=== PATIENT | male | born 1965 | race Caucasian/White ===

== ENCOUNTER 2017-08-26 18:04 | Inpatient (IN) | payer OTHER ==
[~2017-08-26] VITALS: Ht 177.8 cm; Wt 102.3 kg
[2017-08-26 18:04] VITALS: O2SAT 99
[2017-08-26] MEDS ORDERED: MORPHINE SULFATE 8 MG/ML INJ ONE (18:14)
[2017-08-26] MEDS ORDERED: ONDANSETRON HCL 4 MG/2 ML VIAL ONE (18:24)
[2017-08-26] MEDS ORDERED: DIPHTH/TETANUS/ACEL PERTUSSIS (BOOSTER) 0.5 ML VIAL/PFS IM ONE (18:24)
[2017-08-26] MEDS ORDERED: SODIUM CHLORIDE 0.9% FLUSH 10 ML FLUSH IV FLUSH PRN (18:30)
[2017-08-26] MEDS ORDERED: Post-op Orders (for Pharmacy) XX ONE (18:30)
[2017-08-26] MEDS ORDERED: ACETAMINOPHEN/HYDROcodone 325 MG/5 MG TAB PO PRN (18:30)
[2017-08-26] MEDS ORDERED: MORPHINE SULFATE 4 MG/ML INJ IV PUSH PRN (18:30)
[2017-08-26] MEDS ORDERED: NALOXONE HCL 0.4 MG/ML AMP IV PUSH PRN (18:30)
[2017-08-26 18:34] LABS: AUTOMATED NEUTROPHIL # 9.4 TH/MM3 (1.8-7.7); BASOPHIL # 0.1 TH/MM3 (0-0.2); BASOPHIL % 1.1 % (0.0-2.0); EOSINOPHIL # 0.3 TH/MM3 (0-0.4); EOSINOPHIL % 2.3 % (0.0-4.0); HEMATOCRIT 45.8 % (39.0-51.0); HEMO FLAGS DIFF FINAL; LYMPH % 19.4 % (9.0-44.0); LYMPHOCYTE # 2.6 TH/MM3 (1.0-4.8); MEAN CELL VOLUME 89.6 FL (80.0-100.0); MEAN CORPUSCULAR HEMOGLOBIN 30.7 PG (27.0-34.0); MEAN CORPUSCULAR HGB CONC 34.3 % (32.0-36.0); MONO % 7.7 % (0.0-8.0); NEUT % 69.5 % (16.0-70.0); PLATELET COUNT 302 TH/MM3 (150-450); RED BLOOD COUNT 5.11 MIL/MM3 (4.50-5.90); RED CELL DISTRIBUTION WIDTH 12.8 % (11.6-17.2); WHITE BLOOD COUNT 13.5 TH/MM3 (4.0-11.0)
[2017-08-26 18:36] LABS: I-STAT POTASSIUM 3.9 MMOL/L (3.5-4.9)
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
[2017-08-26 18:52] LABS: APTT (PATIENT) 29.6 SEC (24.3-30.1); INTERNATIONAL NORMALIZED RATIO 1.1 RATIO; PROTHROMBIN TIME - PATIENT 10.9 SEC (9.8-11.6)
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
[2017-08-26] MEDS: SODIUM CHLOR 0.9% 1000 ML INJ 1,000 ML IV SCH (19:10)
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
[2017-08-26] MEDS ORDERED: IOHEXOL 350 MG/ML 10 ML VIAL (for RAD DIAG) IVCONTRAST ONE (19:31)
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
[2017-08-26 20:00] VITALS: BP 99/54; PULSE 83; RESP 20; TEMP 97.2; O2SAT 94
[2017-08-26] MEDS: MORPHINE SULFATE 2 MG/ML INJ IV PUSH PRN ×2 (20:07→22:19)
[2017-08-26 20:10] VITALS: BP 151/94; PULSE 93; RESP 24; O2SAT 96
[2017-08-26] MEDS ORDERED: PHENYLEPHRINE HCL 10 MG/ML VIAL ONE (20:24)
[2017-08-26] MEDS: METHOCARBAMOL 500 MG TAB PO SCH (22:00)
[2017-08-26] MEDS: SODIUM CHLORIDE 0.9% FLUSH 10 ML FLUSH IV FLUSH SCH (22:19)
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
[2017-08-27] MEDS: MORPHINE SULFATE 2 MG/ML INJ IV PUSH PRN ×7 (01:25→22:29)
[2017-08-27] MEDS: SODIUM CHLOR 0.9% 1000 ML INJ 1,000 ML IV SCH (04:18)
[2017-08-27 04:24] VITALS: BP 141/77; PULSE 68; RESP 20; TEMP 95.7; O2SAT 94
[2017-08-27 04:24] LABS: AUTOMATED NEUTROPHIL # 8.3 TH/MM3 (1.8-7.7); BASOPHIL # 0.1 TH/MM3 (0-0.2); BASOPHIL % 0.8 % (0.0-2.0); EOSINOPHIL # 0.1 TH/MM3 (0-0.4); EOSINOPHIL % 0.6 % (0.0-4.0); HEMATOCRIT 42.2 % (39.0-51.0); HEMO FLAGS DIFF FINAL; LYMPH % 17.4 % (9.0-44.0); MEAN CELL VOLUME 89.6 FL (80.0-100.0); MEAN CORPUSCULAR HEMOGLOBIN 30.6 PG (27.0-34.0); MEAN CORPUSCULAR HGB CONC 34.2 % (32.0-36.0); MONO % 9.8 % (0.0-8.0); NEUT % 71.4 % (16.0-70.0); PLATELET COUNT 245 TH/MM3 (150-450); RED BLOOD COUNT 4.71 MIL/MM3 (4.50-5.90); RED CELL DISTRIBUTION WIDTH 12.9 % (11.6-17.2); WHITE BLOOD COUNT 11.6 TH/MM3 (4.0-11.0)
[2017-08-27 04:52] LABS: BICARBONATE 22.7 MEQ/L (21.0-32.0); POTASSIUM 4.4 MEQ/L (3.5-5.1)
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
[2017-08-27 08:00] VITALS: BP 145/89; PULSE 77; RESP 18; TEMP 97.2; O2SAT 93
[2017-08-27 08:11] VITALS: O2SAT 94
[2017-08-27] MEDS: DOCUSATE SODIUM 50 MG/SENNA 8.6 MG TAB PO SCH ×2 (08:35→20:48)
[2017-08-27] MEDS: MAGNESIUM HYDROXIDE SUSP 30 ML CUP PO SCH ×2 (08:35→20:47)
[2017-08-27] MEDS: METHOCARBAMOL 500 MG TAB PO SCH ×3 (08:35→20:48)
[2017-08-27] MEDS: SODIUM CHLORIDE 0.9% FLUSH 10 ML FLUSH IV FLUSH SCH ×2 (08:36→20:46)
[2017-08-27] MEDS: FAMOTIDINE 20 MG TAB PO SCH ×2 (08:36→20:47)
[2017-08-27] MEDS: LIDOCAINE HCL 5% PATCH T-DERMAL SCH (08:37)
[2017-08-27] MEDS: ONDANSETRON HCL 4 MG/2 ML VIAL IV PUSH PRN ×3 (08:42→22:29)
[2017-08-27] MEDS ORDERED: CALCIUM CARBONATE 1.25 GM (CA 500 MG) TAB PO PRN (10:00)
[2017-08-27] MEDS: CALCIUM CARBONATE 500 MG CHEWABLE TAB PO PRN ×2 (11:10→17:38)
[2017-08-27] MEDS: NICOTINE 14 MG/24 HR PATCH T-DERMAL SCH (11:11)
[2017-08-27 12:00] VITALS: BP 160/89; PULSE 76; RESP 18; TEMP 97.5; O2SAT 91
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
[2017-08-27] MEDS: ENOXAPARIN SODIUM 30 MG/0.3 ML SYRINGE SQ SCH (13:28)
[2017-08-27] MEDS: ACETAMINOPHEN/HYDROcodone 325 MG/10 MG TAB PO PRN ×2 (15:40→20:49)
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
[2017-08-27 16:00] VITALS: BP 143/76; PULSE 72; RESP 16; TEMP 97.2; O2SAT 93
[2017-08-27 20:00] VITALS: BP 158/95; PULSE 77; RESP 20; TEMP 97.2; O2SAT 93
[2017-08-27] MEDS: REMOVE OLD NICODERM (NICOTINE) PATCH T-DERMAL SCH (20:48)
[2017-08-28] VITALS (7 sets, daily range): BP systolic 140–164; BP diastolic 88–100; PULSE 64–82; RESP 17–20; TEMP 96–97.2; O2SAT 90–94
[2017-08-28] MEDS: ENOXAPARIN SODIUM 30 MG/0.3 ML SYRINGE SQ SCH ×3 (01:00→23:23)
[2017-08-28] MEDS: METHOCARBAMOL 500 MG TAB PO SCH ×3 (05:21→21:06)
[2017-08-28] MEDS: MORPHINE SULFATE 2 MG/ML INJ IV PUSH PRN ×2 (06:06→12:41)
--- NOTE | 2017-08-28 06:43 | RADRPT ---
EXAM DATE/TIME: 08/28/2017 06:17 [facility] COMPARISON: CHEST SINGLE AP, August 27, 2017, 6:15. INDICATIONS : Follow up respiratory status. MEDICAL HISTORY : None. SURGICAL HISTORY : None. ENCOUNTER: Subsequent ACUITY: 4 - 6 days PAIN SCORE: 6/10 LOCATION: Bilateral chest FINDINGS: Left thoracostomy tube remains in place. There is mild persistent contusion at the left lung base. Mi ld atelectasis the right base is slightly worsened on previous exam. Heart encounter is grossly uncha nged. CONCLUSION: Developing right base atelectasis. Kyle Wyatt MD on August 28, 2017 at 6:39 Board Certified Radiologist. This report was verified electronically.
[2017-08-28] MEDS: FAMOTIDINE 20 MG TAB PO SCH ×2 (07:43→21:06)
[2017-08-28] MEDS: MAGNESIUM HYDROXIDE SUSP 30 ML CUP PO SCH ×2 (07:44→21:06)
[2017-08-28] MEDS: NICOTINE 14 MG/24 HR PATCH T-DERMAL SCH (07:44)
[2017-08-28] MEDS: DOCUSATE SODIUM 50 MG/SENNA 8.6 MG TAB PO SCH ×2 (07:44→21:06)
[2017-08-28] MEDS: LIDOCAINE HCL 5% PATCH T-DERMAL SCH (07:45)
[2017-08-28] MEDS: ACETAMINOPHEN/HYDROcodone 325 MG/10 MG TAB PO PRN ×2 (07:45→14:57)
[2017-08-28] MEDS: ONDANSETRON HCL 4 MG/2 ML VIAL IV PUSH PRN ×2 (07:51→14:58)
[2017-08-28] MEDS: SODIUM CHLORIDE 0.9% FLUSH 10 ML FLUSH IV FLUSH SCH ×2 (07:52→21:06)
[2017-08-28] MEDS ORDERED: INFLUENZA VIRUS VACCINE (QUADRIVALENT) 0.5 ML SYR IM ONE (10:00)
[2017-08-28] MEDS ORDERED: PNEUMOCOCCAL POLYVALENT INJ 25 MCG/0.5 ML SYR IM ONE (10:00)
[2017-08-28] MEDS ORDERED: LIDO1ADH4 T-DERMAL (13:13)
[2017-08-28] MEDS ORDERED: NICO14DI23 T-DERMAL (13:13)
[2017-08-28] MEDS ORDERED: HYDR-3516 PO (13:13)
[2017-08-28] MEDS ORDERED: METH500T3 PO (13:13)
[2017-08-28] MEDS ORDERED: PERI PO (13:13)
[2017-08-28] MEDS ORDERED: MAGN30S PO (13:13)
[2017-08-28] MEDS ORDERED: ZOFR4TAB PO (13:13)
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
[2017-08-28] MEDS ORDERED: WALKER WHEELS/F1 MIS (13:16)
[2017-08-28] MEDS ORDERED: IBUP1TAB7 PO (13:17)
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
--- NOTE | 2017-08-28 16:51 | RADRPT ---
EXAM DATE/TIME: 08/28/2017 16:00 [facility] COMPARISON: CHEST SINGLE AP, August 28, 2017, 6:17. INDICATIONS : Post left chest tube removal. MEDICAL HISTORY : None. SURGICAL HISTORY : None. ENCOUNTER: Subsequent ACUITY: 3 days PAIN SCORE: 0/10 LOCATION: Bilateral chest FINDINGS: Single AP view of the chest. Patchy opacity at the left lung base unchanged. Left-sided chest tube no longer seen. No evidence of pneumothorax. Subcutaneous emphysema noted on the left. CONCLUSION: Left-sided chest tube removed. No evidence of pneumothorax. Patchy left lung base opacity unchanged. Kevin Garcia MD on August 28, 2017 at 16:49 Board Certified Radiologist. This report was verified electronically.
[2017-08-28] MEDS ORDERED: oxyCODONE/ACETAMINOPHEN 5 MG/325 MG TAB PO PRN (17:45)
[2017-08-28] MEDS: KETOROLAC TROMETHAMINE 30 MG/ML (IVP) VIAL IV PUSH SCH ×2 (18:08→23:23)
[2017-08-28] MEDS: oxyCODONE/ACETAMINOPHEN 10 MG/325 MG TAB PO PRN ×2 (18:08→23:23)
[2017-08-28] MEDS: REMOVE OLD NICODERM (NICOTINE) PATCH T-DERMAL SCH (21:00)
[2017-08-29 00:16] VITALS: BP 158/86; PULSE 69; RESP 20; TEMP 97.1; O2SAT 92
[2017-08-29] MEDS: KETOROLAC TROMETHAMINE 30 MG/ML (IVP) VIAL IV PUSH SCH (05:00)
[2017-08-29] MEDS: METHOCARBAMOL 500 MG TAB PO SCH (05:01)
[2017-08-29] MEDS: oxyCODONE/ACETAMINOPHEN 10 MG/325 MG TAB PO PRN ×3 (05:01→10:20)
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
[2017-08-29] MEDS: MAGNESIUM HYDROXIDE SUSP 30 ML CUP PO SCH (07:15)
[2017-08-29] MEDS: FAMOTIDINE 20 MG TAB PO SCH (07:16)
[2017-08-29] MEDS: NICOTINE 14 MG/24 HR PATCH T-DERMAL SCH (07:16)
[2017-08-29] MEDS: DOCUSATE SODIUM 50 MG/SENNA 8.6 MG TAB PO SCH (07:16)
[2017-08-29] MEDS: SODIUM CHLORIDE 0.9% FLUSH 10 ML FLUSH IV FLUSH SCH (07:17)
[2017-08-29] MEDS: LIDOCAINE HCL 5% PATCH T-DERMAL SCH (07:17)
[2017-08-29 08:00] VITALS: BP 177/103; PULSE 80; RESP 16; TEMP 97; O2SAT 92
[2017-08-29] MEDS ORDERED: LISI10TA3 PO (08:59)
[2017-08-29] MEDS ORDERED: OXYC1TAB63 PO (08:59)
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
== END 2017-08-29 13:08 | disposition home health service (06) | DRG 200 ==
LOC: NEPI 18:04 → EDBD 18:52 → NEDA 18:52 → N07B 21:56
PROVIDERS: ADMIT Surgery; ATTEND Surgery
PROC: 0W9B30Z Drainage of Left Pleural Cavity with Drainage Device, Percutaneous Approach (ICD-10-PCS; principal; 2017-08-26)
PROC: 0WP830Z Removal of Drainage Device from Chest Wall, Percutaneous Approach (ICD-10-PCS; 2017-08-28)
DX: S27.1XXA Traumatic hemothorax, initial encounter (principal); S22.42XA Multiple fractures of ribs, left side, initial encounter for closed fracture; S91.312A Laceration without foreign body, left foot, initial encounter; R06.03 Acute respiratory distress; S42.192A Fracture of other part of scapula, left shoulder, initial encounter for closed fracture; S00.03XA Contusion of scalp, initial encounter; S90.412A Abrasion, left great toe, initial encounter; R40.2413 Glasgow coma scale score 13-15, at hospital admission; V28.4XXA Motorcycle driver injured in noncollision transport accident in traffic accident, initial encounter; Y92.410 Unspecified street and highway as the place of occurrence of the external cause; Z23 Encounter for immunization
CPT/HCPCS: 70450; 71010; 71260; 72125; 72129; 72132; 74177; 80048; 82435; 82565; 82947; 84132; 84295; 84520; 85025; 85610; 85730; 86850; 86900; 86901; 90686; 90715; 90732; 94150; 94640; 94667; 94668; J0690; J1650; J1885; J2270; J2370; J2405; J7030; Q2038; Q9967